=== PATIENT | female | born 1975 | race Caucasian/White ===

== ENCOUNTER 2018-07-13 20:45 | Inpatient (IN) ==
[2018-07-13] MEDS ORDERED: Mag Hydrox/Al Hydrox/Simeth 30 ML UDC PO PRN (21:35)
[2018-07-13] MEDS ORDERED: *HR* LORazepam 1 MG TABLET PO PRN (21:35)
[2018-07-13] MEDS ORDERED: hydrOXYzine pamoate 25 MG CAPSULE PO PRN (21:35)
[2018-07-13] MEDS ORDERED: Haloperidol Lactate 5 MG/ML VIAL IM PRN (21:35)
[2018-07-13] MEDS ORDERED: *HR* LORazepam 2 MG/ML VIAL IM PRN (21:35)
[2018-07-13] MEDS ORDERED: MOM Conc 10 ML UD.LIQ PO PRN (21:35)
[2018-07-14] MEDS: Vitamin B Complex/Vit C/Vit E 1 EACH TABLET PO SCH (08:59)
[2018-07-14] MEDS: Loratadine 10 MG TABLET PO SCH (08:59)
[2018-07-14] MEDS: Folic Acid 1 MG TABLET PO SCH (08:59)
[2018-07-14] MEDS: Nicotine 21 MG PATCH.TD24 TD SCH (09:00)
--- NOTE | 2018-07-14 14:56 | Psychiatry History & Physical ---
Date of Encounter: 07/14/18 Time of Encounter: 14:30 History of Present Illness Medicare Admission Attestation: For traditional Medicare patients the provided hospital inpatient services are reasonable and necessary and in the case of services not specified as inpatient-only under 42 CFR 419.22 (n), that they are appropriately provided as inpatient services in accordance 42 CFR 412.3. For Critical Access Hospital the patient may reasonably be expected to be discharged or transferred to a hospital within 96 hours after admission to the Critical Access Hospital. Admitted From: Emergency Dept Plans for Post Hospital Care: Home History of Present Illness: Pt is a 43 yo, , female, marriedx2 x2, with 4 children (22D,18D, 13D, 11D)who presents for mood and depression to the emergency department. Pt noted she felt safe and comfortable on the unit. Pt was in agreement with treatment plan. Pt noted that she is doing better today. Pt noted she slept 8-10 hours last night. Pt noted her appetite is reduced. Pt rated her depression a 5, on a scale of zero to ten with ten being the worst and zero being none. Pt rate her anxiety a 8, on the same scale. Pt denied any current visual or auditory hallucinations. Pt denied any thoughts to harm herself or anyone else. Pt noted she has her own home in [facility]. Pt noted that her highest level of education is some college nursing degree. 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 Pt noted 2 inpt psychiatric hospitalizations. Pt noted three previous suicide attempts via alcohol and overdose. Pt denies any suicide family hx. PT noted her mother was Bipolar D/O. PT agreed to utilizing only quetiapine and lithium for medication management of Bipolar D/O. Pt was educated on the risks benefits and side-effects of these medications including no medication, pt was in agreement. . No TD noted, AIMS=0 Pt denies any hx of seizures, hep C, HIV or TBIs. Tobacco: 1ppd Alcohol: vodka daily Street: occasional marijuan Caffeine: 2-3 per day Plan 1.Interval hx 2.Continue current medications 3.Review current labs 4.Pt had an opportunity to ask questions and discuss current treatment plan. 5.Supportive therapy was provided 6.Pt encouraged to consider group or individual therapy 7.Pt was in agreement with treatment plan. 8.Pt was educated on the risks benefits and side effects of current medications. 9. start acamprosate for alcohol use D/O. Past Med Surg Social Fam HX - Past Medical History Medical history: asthma, thyroid disease, other - Past Psychiatric History Psychiatric history: Reports: anxiety, depression, prior suicide attempt, previous psychiatric hospitalization Family psychiatric history: Yes Family History of Suicide: None - Past Surgical History Surgical History: cholecystectomy, hysterectomy - Social History Smoking Status: Current every day smoker Smokeless Tobacco Status: No Alcohol use: heavy, recent Drug use: marijuana Medications & Allergies Levothyroxine [Synthroid] 112 mcg PO DAILY 02/12/16 [History] clonazePAM [Klonopin] 1 mg PO TID 02/12/16 [History] Esomeprazole Magnesium [Nexium] 20 mg PO DAILY 04/10/17 [History] Albuterol Sulfate [Albuterol Inhaler] 2 puff IH Q4HR PRN 07/11/18 [History] Loratadine [Claritin] 10 mg PO DAILY 07/11/18 [History] Chlordiazepoxide [Librium] 50 mg PO TID capsule 07/12/18 [Rx] Folic Acid 1 mg PO DAILY tablet 07/12/18 [Rx] Vitamin B Complex/Vit C/Vit E [Stresstab] 1 each PO DAILY tablet 07/12/18 [Rx] Allergy/AdvReac Type Severity Reaction Status Date / Time baclofen Allergy Hives Verified 11/28/17 04:21 nitrofurantoin Allergy Hives Verified 11/28/17 04:21 [From Macrobid] Review of Systems Constitutional: Denies: fever, chills, weakness, weight change Eyes: Denies: eye pain, vision change Ears, Nose, Throat: Denies: ear pain, throat pain, dental pain, hearing loss, congestion Cardiovascular: Denies: chest pain, palpitations, dyspnea on exertion Respiratory: Denies: cough, dyspnea, wheezes Gastrointestinal: Denies: abdominal pain, nausea, vomiting, diarrhea, constipation Genitourinary female: Denies: urgency, dysuria, frequency, abnormal menses, dyspareunia Musculoskeletal: Denies: joint swelling, joint pain Integumentary: Denies: rash, lesions, pruritus Neurological: Denies: headache, weakness, numbness, memory loss Psychiatric: Reports: depression, anxiety, abnormal sleep pattern, suicidal ideation, panic attacks Endocrine: Denies: fatigue, heat or cold intolerance Hematologic/Lymphatic: Denies: easy bruising, lymphadenopathy Allergic/Immunologic: Denies: urticaria, itchy eyes Exam - HEENT Head exam IM: Present: atraumatic Eye exam IM: Present: EOMI, normal appearance, PERRL ENT exam IM: Present: normal exam - Neurological Neurological exam: Present: CN II-XII intact - Respiratory Respiratory exam IM: Present: CTAB - GI/Abdominal GI/Abdominal exam IM: Present: normal bowel sounds, soft. Absent: tenderness - Extremities Extremities exam IM: Present: full ROM - Skin Skin exam IM: Present: dry, warm - Constitutional Vitals: Temp Pulse Resp BP Pulse Ox 98.7 F 82 16 94/61 98 07/14/18 09:00 07/14/18 09:00 07/14/18 09:00 07/14/18 09:00 07/14/18 09:00 General appearance: age & developmentally appropriate, well-groomed, well- nourished - Musculoskeletal Gait: normal Station: relaxed Strength & Tone: normal for patient - Psychiatric Patient Orientation: Yes Person, Yes Time, Yes Place Level of alertness: Alert Behavior: calm, cooperative Psychomotor activity: Normal Eye Contact: Maintains Eye Contact Mood Description: Depressed Affect description: flat, dysphoric Speech Volume: Normal Speech pattern: normal rate, normal rhythm, normal tone, fluent, spontaneous Language & Vocabulary: consistent with education Thought Process: Linear, Goal Oriented Thought Content: No Suicidal ideation, No Homicidal ideation, No Overt delusions Perceptual Disturbances: No Auditory hallucinations, No Visual hallucinations Attention Span Ability: Capable of Focused Attention Memory Description: Grossly Intact Patient Reliability: Reliable Historian Fund of knowledge: Yes abstraction ability, Yes average, Yes aware of current events Intelligence Estimate: Average Judgment: Limited Insight: Partial Assessment and Plan (1) Bipolar 1 disorder Current visit: Yes Status: Acute Plan: Admit inpatient for safety and stabilization, Close observation, Suicide Precautions per unit protocol, Encourage participation in unit milieu, Group Therapy, Monitor sleep, Monitor appetite Risks, benefits, side effects, a lternatives discussed w/pt: Yes Patient agreeable to treatment: Yes Plans for Post Hospital Care: at Home (2) Alcohol use Current visit: No Status: Chronic Plan: Admit inpatient for safety and stabilization, Close observation, Suicide Precautions per unit protocol, Encourage participation in unit milieu, Group Therapy, Monitor sleep, Monitor appetite Risks, benefits, side effects, alternatives discussed w/pt: Yes Patient agreeable to treatment: Yes Plans for Post Hospital Care: at Home (3) Generalized anxiety disorder Current visit: No Status: Acute Plan: Admit inpatient for safety and stabilization, Close observation, Suicide Precautions per unit protocol, Encourage participation in unit milieu, Group Therapy, Monitor sleep, Monitor appetite Risks, benefits, side effects, alternatives discussed w/pt: Yes Patient agreeable to treatment: Yes Plans for Post Hospital Care: at Home
[2018-07-14 15:54] LABS: Basophils # 0.1 K/mcL (0.0-0.2); Basophils % 0.6 %; Eosinophils # 0.3 K/mcL (0.0-0.6); Hematocrit 41.9 % (35.3-44.9); Hemoglobin 13.9 g/dL (11.5-15.4); Immature Granulocytes % 0.4 % (0-4); Lymphocytes % 21.9 %; Mean Corpuscular HGB Conc 33.2 g/dL (31.6-35.5); Mean Corpuscular Hemoglobin 35.1 pg (28.0-33.3); Mean Corpuscular Volume 105.8 fL (83.0-100.0); Mean Platelet Volume 11.1 fL (9.4-12.4); Monocytes % 7.3 %; Neutrophils # 9.4 K/mcL (1.6-8.9); Platelet Count 271 K/mcL (140-400); Red Blood Count 3.96 M/mcL (3.82-4.97); Red Cell Distribution Width 14.5 % (11.5-14.5); Segmented Neutrophils % 67.8 %
[2018-07-14 16:14] LABS: Alanine Aminotransferase 10 Units/L (7-52); Albumin 4.5 g/dL (3.5-5.7); Albumin/Globulin Ratio 1.7 (1.1-2.2); Alkaline Phosphatase 54 Units/L (34-104); Aspartate Amino Transferase 17 Units/L (13-39); BUN/Creatinine Ratio 20 (6-26); Bilirubin,Total 0.3 mg/dL (0.3-1.0); Blood Urea Nitrogen 19 mg/dL (6-20); Calcium 9.8 mg/dL (8.6-10.3); Carbon Dioxide 25 mEq/L (23-29); Chloride 107 mEq/L (98-107); Globulin 2.7 g/dL (2.4-3.5); Glucose 90 mg/dL (70-105); Osmolality,Calculated 288 (280-300); Potassium 4.3 mEq/L (3.5-5.1); Sodium 138 mEq/L (136-145); Total Protein 7.2 g/dL (6.4-8.9); eGFR For Non-African Americans > 60 (> 60)
[2018-07-14] MEDS ORDERED: (Acamprosate Calcium [Acamprosate Calcium] 666 MG) PO SCH (16:30)
[2018-07-14] MEDS ORDERED: NALTREXONE HCL 50 MG TABLET PO SCH (21:00)
[2018-07-14] MEDS: Ibuprofen 400 MG TABLET PO PRN (21:30)
[2018-07-14] MEDS: NALTREXONE HCL 50 MG TABLET PO SCH (21:31)
[2018-07-14] MEDS: Divalproex (24 HR) 250 MG TABLET PO SCH (21:31)
[2018-07-15] MEDS: Nicotine 21 MG PATCH.TD24 TD SCH (09:06)
[2018-07-15] MEDS: Folic Acid 1 MG TABLET PO SCH (09:07)
[2018-07-15] MEDS: Loratadine 10 MG TABLET PO SCH (09:07)
[2018-07-15] MEDS: Vitamin B Complex/Vit C/Vit E 1 EACH TABLET PO SCH (09:07)
[2018-07-15] MEDS: Thiamine (B-1) 100 MG TABLET PO SCH (09:07)
--- NOTE | 2018-07-15 17:23 | Psychiatry Progress Note ---
Date of Encounter: 07/15/18 Time of Encounter: 17:00 Subjective Interval history: ID the patient is a 43-year-old white female. Chief complaint I does have a lot of anxiety History of present illness the patient has bipolar disorder generalized anxiety disorder and now recognizes difficulty with alcohol abuse. She is on Librium and is on a tapering dose but still has significant anxiety and is anxious and apprehensive. The patient has had suicidal ideation with thoughts and says this has got to help my anxiety. The patient has tolerated valproic acid she receives 750 mg last night. She is tolerated naltrexone 25 mg she received at night. The patient has previously failed to tolerate topiramate she is allergic to baclofen she has never been on Campral BuSpar did not help. She now recognizes the need to maintain a clean and sober lifestyle. She is willing to engage in some types of therapy to help with. She recognizes that Librium will need to be slowly tapered. We talked about job and career as well Review of Systems Psychiatric: Reports: depression, anxiety, abnormal sleep pattern, suicidal ideation, panic attacks Results - Vital Signs Vital Signs: Temp Pulse Resp BP Pulse Ox 97.1 F L 102 18 108/77 100 07/15/18 09:00 07/15/18 09:00 07/15/18 09:00 07/15/18 09:00 07/15/18 09:00 Assessment and Plan (1) Major depressive disorder with current active episode Current visit: No Status: Chronic Plan: Continue hospitalization, Close observation, Suicide Precautions per unit protocol, Encourage participation in unit milieu, Monitor appetite, Secure weapons Risks, benefits, side effects, alternatives discussed w/pt: Yes Patient agreeable to treatment: Yes Qualifiers: Major depression recurrence: recurrent Major depression episode severity: severe Psychotic features: without psychotic features Qualified Code(s): F33.2 - Major depressive disorder, recurrent severe without psychotic features (2) Alcohol use Current visit: No Status: Chronic Plan: Monitor sleep, Monitor appetite Risks, benefits, side effects, alternatives discussed w/pt: Yes Patient agreeable to treatment: Yes (3) Suicidal ideation Current visit: No Status: Acute Plan: Continue hospitalization, Close observation, Suicide Precautions per unit protocol, Encourage participation in unit milieu Psychiatry Exam - Constitutional Vitals: Temp Pulse Resp BP Pulse Ox 97.1 F L 102 18 108/77 100 07/15/18 09:00 07/15/18 09:00 07/15/18 09:00 07/15/18 09:00 07/15/18 09:00 General appearance: age & developmentally appropriate, well-groomed, well- nourished - Musculoskeletal Gait: brisk Strength & Tone: normal for patient - Psychiatric Patient Orientation: Yes Person, Yes Time, Yes Place Level of alertness: Alert Behavior: calm, cooperative Psychomotor activity: Increased Eye Contact: Maintains Eye Contact Mood Description: Euthymic/stable, Anxious Affect description: congruent with mood, full range, dysphoric, anxious Speech Volume: Normal Speech pattern: normal rate, normal rhythm, normal tone, fluent, spontaneous Language & Vocabulary: consistent with education Thought Process: Linear, Goal Oriented Thought Content: Yes Suicidal ideation, No Homicidal ideation, No Overt delusions Perceptual Disturbances: No Auditory hallucinations, No Visual hallucinations Attention Span Ability: Capable of Focused Attention Memory Description: Grossly Intact Patient Reliability: Reliable Historian Fund of knowledge: Yes abstraction ability, Yes aware of current events Intelligence Estimate: Above [place] Judgment: Fair Insight: Partial
[2018-07-15] MEDS: NALTREXONE HCL 50 MG TABLET PO SCH (20:23)
[2018-07-15] MEDS: Divalproex (24 HR) 250 MG TABLET PO SCH (20:23)
[2018-07-15] MEDS: Ibuprofen 400 MG TABLET PO PRN (20:24)
[2018-07-16] MEDS: Thiamine (B-1) 100 MG TABLET PO SCH (09:02)
[2018-07-16] MEDS: Folic Acid 1 MG TABLET PO SCH (09:02)
[2018-07-16] MEDS: Loratadine 10 MG TABLET PO SCH (09:03)
[2018-07-16] MEDS: Vitamin B Complex/Vit C/Vit E 1 EACH TABLET PO SCH (09:03)
[2018-07-16] MEDS: Nicotine 21 MG PATCH.TD24 TD SCH (09:03)
--- NOTE | 2018-07-16 15:49 | Psychiatry Progress Note ---
Date of Encounter: 07/16/18 Time of Encounter: 15:30 Subjective Interval history: U the patient is a 43-year-old white female. Chief complaint can I take the Depakote twice a day. History of present illness the patient has been able to tolerate the naltrexone she has taken 25 mg by mouth she was able to tolerate the Depakote she notes some increase in sleep through the patient is worried about the cost of medications. She is concerned about her follow-up. The patient notes that abstinence is difficult. The patient still has anxiety. She was willing to reduce her Librium today. She is making plans for a sober life. . The patient has a history of pancreatitis but this was an alcoholic pancreatitis. The patient has a history of elevated white blood cells that have not been fully explained. Apical tends to reduce white blood cells. The patient had other hematologic abnormalities. The patient will have an amylase and valproic acid level drawn tomorrow with a CBC with differential. Review of Systems Psychiatric: Reports: depression, anxiety, suicidal ideation, panic attacks Results - Vital Signs Vital Signs: Temp Pulse Resp BP Pulse Ox 97.7 F 96 16 105/74 100 07/16/18 09:00 07/16/18 09:00 07/16/18 09:00 07/16/18 09:00 07/16/18 09:00 Assessment and Plan (1) Major depressive disorder with current active episode Current visit: No Status: Chronic Plan: Continue hospitalization, Close observation, Suicide Precautions per unit protocol, Group Therapy, Monitor sleep Risks, benefits, side effects, alternatives discussed w/pt: Yes Patient agreeable to treatment: Yes Qualifiers: Major depression recurrence: recurrent Major depression episode severity: severe Psychotic features: without psychotic features Qualified Code(s): F33.2 - Major depressive disorder, recurrent severe without psychotic features (2) Alcohol use Current visit: No Status: Chronic Plan: Suicide Precautions per unit protocol, Monitor appetite, Secure weapons Risks, benefits, side effects, alternatives discussed w/pt: Yes Patient agreeable to treatment: Yes (3) Suicidal ideation Current visit: No Status: Acute Plan: Continue hospitalization, Close observation, Family/Supportive other meeting Risks, benefits, side effects, alternatives discussed w/pt: Yes Patient agreeable to treatment: Yes Consult Discharge Plan - Plan Referrals: [facility] [Outside] - 08/20/18 10:00 am (The above appointment is with Dr. Rene for outpatient psychiatric assessment and medication management services. Please bring your insurance card (or HCAP award letter) and photo ID. If you are unable to keep this appointment, 24 hour business notice of cancellation is expected. If you miss your new patient appointment with any provider without providing appropriate notice, you cannot be re-scheduled for that service. The above appointment(s) reflects first availability. You may contact the office regularly to check for cancellations that may allow you to be seen sooner. The [facility] is the 1st building behind [facility] in [place], [place]. Please do not use GPS or mapping apps to locate the office, as they will take you to the wrong location. ) [facility] [Outside] (The above appointment is with . Please complete and bring the [facility] intake packet you were provided at the hospital to this appointment. When you come to your first appointment, you will be meeting with business office staff, meeting with a counselor, and developing a treatment plan. You will receive follow- up appointments for on-going services, which could include community support, mental health and substance abuse counseling, groups/partial hospitalization programming and medication assisted treatment. You will also need to bring the following to your first appointment as well: 1) proof of household income (two consecutive pay stubs, social security award letter, bank statement, statement letter from [facility], child support statement, IRS 1040 or W2 form, or a statement from the person who financially supports you stating they help provide for your basic needs), 2) proof of residency (drivers license, a piece of mail showing your address, a statement from person you live with verifying you live at their address), 3) photo ID, 4) your insurance card (if you have commercial insurance you must call to obtain a prior authorization number before you arrive to your first appointment) and 5) if you do not have insurance but have applied for Medicaid, please bring verification you have applied. The above appointment(s) reflects first availability. You may contact the office regularly to check for cancellations that may allow you to be seen sooner.) Psychiatry Exam - Constitutional Vitals: Temp Pulse Resp BP Pulse Ox 97.7 F 96 16 105/74 100 07/16/18 09:00 07/16/18 09:00 07/16/18 09:00 07/16/18 09:00 07/16/18 09:00 General appearance: age & developmentally appropriate, well-groomed, well- nourished - Musculoskeletal Gait: normal Station: relaxed Strength & Tone: normal for patient - Psychiatric Patient Orientation: Yes Person, Yes Time, Yes Place Level of alertness: Alert Behavior: calm, cooperative Psychomotor activity: Normal Eye Contact: Maintains Eye Contact Mood Description: Anxious Affect description: congruent with mood, full range Speech Volume: Normal Speech pattern: normal rate, normal rhythm, normal tone, fluent, spontaneous Language & Vocabulary: consistent with education Thought Process: Linear, Goal Oriented Thought Content: Yes Suicidal ideation, No Homicidal ideation, No Overt delusions Perceptual Disturbances: No Auditory hallucinations, No Visual hallucinations Attention Span Ability: Capable of Focused Attention Memory Description: Grossly Intact Patient Reliability: Reliable Historian Fund of knowledge: Yes abstraction ability, Yes aware of current events Intelligence Estimate: Above [place] Judgment: Fair Insight: Partial
[2018-07-16] MEDS ORDERED: Divalproex (24 HR) 500 MG TABLET PO STA (15:57)
[2018-07-16] MEDS: Ibuprofen 400 MG TABLET PO PRN (16:03)
[2018-07-16] MEDS ORDERED: Divalproex (24 HR) 500 MG TABLET PO SCH ×2 (21:00)
[2018-07-16] MEDS: NALTREXONE HCL 50 MG TABLET PO SCH (21:58)
[2018-07-17] MEDS: Ibuprofen 400 MG TABLET PO PRN ×2 (06:38→21:06)
[2018-07-17] MEDS: Nicotine 21 MG PATCH.TD24 TD SCH (09:08)
[2018-07-17] MEDS: Divalproex (24 HR) 250 MG TABLET PO SCH ×2 (09:09→21:06)
[2018-07-17] MEDS: Vitamin B Complex/Vit C/Vit E 1 EACH TABLET PO SCH (09:10)
[2018-07-17] MEDS: Thiamine (B-1) 100 MG TABLET PO SCH (09:10)
[2018-07-17] MEDS: Loratadine 10 MG TABLET PO SCH (09:10)
[2018-07-17] MEDS: Folic Acid 1 MG TABLET PO SCH (09:10)
[2018-07-17 09:46] LABS: Basophils # 0.1 K/mcL (0.0-0.2); Basophils % 0.7 %; Eosinophils # 0.3 K/mcL (0.0-0.6); Eosinophils % 2.7 %; Hematocrit 41.9 % (35.3-44.9); Hemoglobin 13.8 g/dL (11.5-15.4); Immature Granulocytes % 0.7 % (0-4); Lymphocytes # 1.9 K/mcL (0.6-4.6); Lymphocytes % 19.3 %; Mean Corpuscular HGB Conc 32.9 g/dL (31.6-35.5); Mean Corpuscular Volume 106.3 fL (83.0-100.0); Mean Platelet Volume 10.7 fL (9.4-12.4); Monocytes # 0.7 K/mcL (0.0-1.3); Platelet Count 264 K/mcL (140-400); Red Blood Count 3.94 M/mcL (3.82-4.97); Red Cell Distribution Width 14.4 % (11.5-14.5); Segmented Neutrophils % 69.6 %
--- NOTE | 2018-07-17 11:26 | Psychiatry Progress Note ---
Date of Encounter: 07/17/18 Time of Encounter: 11:00 Subjective Interval history: ID the patient is a 43-year-old white female. Chief complaint I just feel so tired. History of present illness the patient has tolerated the medication regimen but among the treatments that she is receiving his Seroquel 50 mg daily at bedtime last night she got it at 10 PM and did not fall asleep until midnight. The patient tolerated naltrexone 25 mg and is ready to go to 50 mg every afternoon. The patient describes some morning tiredness and fogginess and notes that yesterday he did not let up until about 2:00 in the afternoon. The patient has not used much hydroxyzine as it does not help she has tolerated Depakote 500 mg twice a day. A valproic acid panel is pending today. The patient has 7 days of sobriety and is working on her plans for follow-up. Currently these involve [facility] but she does not want to go to [facility]. She has plans to maintain her sobriety and to return to work in her work schedule she would awaken at 3:30 in the morning and go to work and do an early shift. The patient has no alcohol in her home she has no drugs in her home she has no incendiary devices ropes chains or firearms read this is been verified. The patient was counseled on the importance of safety in the home area as suicidal ideation could occur with major depression or relapse into alcohol abuse. The patient has significant anxiety we reviewed some labs. The patient is being treated with Synthroid for thyroid disease but notes that the TSH is unreliable in her case she notes that she has some features of hypothyroidism such as cold intolerance but will discuss this with her family doctor. Patient was advised on options for maintaining sobriety such as AA obtaining a sponsor or being involved in other programs. Review of Systems Psychiatric: Reports: depression, anxiety, suicidal ideation, panic attacks Results - Vital Signs Vital Signs: Temp Pulse Resp BP Pulse Ox 97.8 F 103 18 93/59 100 07/17/18 09:00 07/17/18 09:00 07/17/18 09:00 07/17/18 09:00 07/17/18 09:00 - Labs Labs: Laboratory Results - last 24 hr 07/17/18 09:36 WBC 10.1 RBC 3.94 Hgb 13.8 Hct 41.9 MCV 106.3 H MCH 35.0 H MCHC 32.9 RDW 14.4 Plt Count 264 MPV 10.7 Immature Gran % 0.7 Seg Neutrophils % 69.6 Lymphocytes % 19.3 Monocytes % 7.0 Eosinophils % 2.7 Basophils % 0.7 Neutrophils # 7.0 Lymphocytes # 1.9 Monocytes # 0.7 Eosinophils # 0.3 Basophils # 0.1 Assessment and Plan (1) Major depressive disorder with current active episode Current visit: No Status: Chronic Plan: Continue hospitalization, Close observation, Suicide Precautions per unit protocol, Encourage participation in unit milieu, Group Therapy, Monitor sleep, Monitor appetite, Secure weapons Risks, benefits, side effects, alternatives discussed w/pt: Yes Patient agreeable to treatment: Yes Qualifiers: Major depression recurrence: recurrent Major depression episode severity: severe Psychotic features: without psychotic features Qualified Code(s): F33.2 - Major depressive disorder, recurrent severe without psychotic features (2) Alcohol use Current visit: No Status: Chronic Plan: Continue hospitalization, Close observation, Suicide Precautions per unit protocol, Encourage participation in unit milieu, Group Therapy, Monitor sleep, Monitor appetite, Secure weapons, Other Risks, benefits, side effects, alternatives discussed w/pt: Yes Patient agreeable to treatment: Yes (3) Suicidal ideation Current visit: No Status: Acute Plan: Suicide Precautions per unit protocol, Secure weapons Risks, benefits, side effects, alternatives discussed w/pt: Yes Patient agreeable to treatment: Yes Consult Discharge Plan - Plan Referrals: [facility] [Outside] - 08/20/18 10:00 am (The above appointment is with Dr. Rene for outpatient psychiatric assessment and medication management services. Please bring your insurance card (or [facility] award letter) and photo ID. If you are unable to keep this appointment, 24 hour business notice of cancellation is expected. If you miss your new patient appointment with any provider without providing appropriate notice, you cannot be re-scheduled for that service. The above appointment(s) reflects first availability. You may contact the office regularly to check for cancellations that may allow you to be seen sooner. The [facility] is the 1st building behind [facility] in [place], [place]. Please do not use GPS or mapping apps to locate the office, as they will take you to the wrong location. ) [facility] [Outside] (The above appointment is with . Please complete and bring the [facility] intake packet you were provided at the hospital to this appointment. When you come to your first appointment, you will be meeting with business office staff, meeting with a counselor, and developing a treatment plan. You will receive follow- up appointments for on-going services, which could include community support, mental health and substance abuse counseling, groups/partial hospitalization programming and medication assisted treatment. You will also need to bring the following to your first appointment as well: 1) proof of household income (two consecutive pay stubs, social security award letter, bank statement, statement letter from [facility], child support statement, IRS 1040 or W2 form, or a statement from the person who financially supports you stating they help provide for your basic needs), 2) proof of residency (drivers license, a piece of mail showing your address, a statement from person you live with verifying you live at their address), 3) photo ID, 4) your insurance card (if you have commercial insurance you must call to obtain a prior authorization number before you arrive to your first appointment) and 5) if you do not have insurance but have applied for Medicaid, please bring verification you have applied. The above appointment(s) reflects first availability. You may contact the office regularly to check for cancellations that may allow you to be seen sooner.) Psychiatry Exam - Constitutional Vitals: Temp Pulse Resp BP Pulse Ox 97.8 F 103 18 93/59 100 07/17/18 09:00 07/17/18 09:00 07/17/18 09:00 07/17/18 09:00 07/17/18 09:00 General appearance: age & developmentally appropriate, well-groomed, thin - Musculoskeletal Gait: normal Station: relaxed Strength & Tone: normal for patient - Psychiatric Patient Orientation: Yes Person, Yes Time, Yes Place Level of alertness: Alert Behavior: calm, cooperative Psychomotor activity: Slowed Eye Contact: Maintains Eye Contact Mood Description: Depressed, Anxious Affect description: congruent with mood, anxious Speech Volume: Normal, Whispering Speech pattern: normal rate, normal rhythm, normal tone, fluent, spontaneous Language & Vocabulary: consistent with education Thought Process: Linear, Goal Oriented Thought Content: Yes Suicidal ideation, No Homicidal ideation, No Overt delusions Perceptual Disturbances: No Auditory hallucinations, No Visual hallucinations Attention Span Ability: Capable of Focused Attention Memory Description: Grossly Intact Patient Reliability: Reliable Historian Fund of knowledge: Yes abstraction ability, Yes aware of current events Intelligence Estimate: Above [place] Judgment: Fair Insight: Partial
[2018-07-17 12:02] LABS: Amylase 69 Units/L (29-103)
[2018-07-17 12:43] LABS: Valproate 58 mcg/mL (50-100)
[2018-07-17] MEDS ORDERED: NALTREXONE HCL 50 MG TABLET PO SCH (21:00)
[2018-07-18] MEDS: Thiamine (B-1) 100 MG TABLET PO SCH (08:56)
[2018-07-18] MEDS: Divalproex (24 HR) 250 MG TABLET PO SCH (08:57)
[2018-07-18] MEDS: Loratadine 10 MG TABLET PO SCH (08:57)
[2018-07-18] MEDS: Vitamin B Complex/Vit C/Vit E 1 EACH TABLET PO SCH (08:57)
[2018-07-18] MEDS: Folic Acid 1 MG TABLET PO SCH (08:57)
[2018-07-18] MEDS: Nicotine 21 MG PATCH.TD24 TD SCH (08:58)
[2018-07-18 09:45] VITALS: BP 94/64
--- NOTE | 2018-07-18 12:45 | Discharge Summary ---
Date of Encounter: 07/18/18 Time of Encounter: 12:30 Diagnosis - Discharge Diagnosis (1) Major depressive disorder with current active episode Priority: Primary Status: Chronic Qualifiers: Major depression recurrence: recurrent Major depression episode severity: severe Psychotic features: without psychotic features Qualified Code(s): F33.2 - Major depressive disorder, recurrent severe without psychotic features (2) Alcohol use Priority: Secondary Status: Chronic (3) Suicidal ideation Status: Resolved Medications - Discharge Medications Prescriptions: Divalproex (24 HR) [Depakote ER (24 HR)] 500 mg PO BID 30 Days #60 tab.er.24h Folic Acid 1 mg PO DAILY 30 Days #30 tablet Levothyroxine [Synthroid] 112 mcg PO DAILY@0630 30 Days #30 tablet Naltrexone HCl 50 mg PO HS 30 Days #30 tablet Omeprazole [PriLOSEC] 40 mg PO DAILY@0900 30 Days #30 capsule. Quetiapine Fumarate [Seroquel] 50 mg PO HS PRN 30 Days #30 tablet PRN Reason: Insomnia Thiamine (B-1) [Vitamin B-1] 100 mg PO DAILY 30 Days #30 tablet Vitamin B Complex/Vit C/Vit E [Stresstab] 1 each PO DAILY 30 Days #30 tablet Albuterol Sulfate [Albuterol Inhaler] 2 puff IH Q4HR PRN 07/11/18 [History] Dicyclomine [Bentyl] 20 mg PO Q6H PRN capsule 07/18/18 [Rx] Divalproex (24 HR) [Depakote ER (24 HR)] 500 mg PO BID 30 Days #60 tab.er.24h 07/18/18 [Rx] Esomeprazole Magnesium [Nexium] 20 mg PO DAILY 30 Days #30 tab 07/18/18 [Rx] Folic Acid 1 mg PO DAILY 30 Days #30 tablet 07/18/18 [Rx] Levothyroxine [Synthroid] 112 mcg PO DAILY@0630 30 Days #30 tablet 07/18/18 [Rx] Loratadine [Claritin] 10 mg PO DAILY 30 Days #30 tab 07/18/18 [Rx] Naltrexone HCl 50 mg PO HS 30 Days #30 tablet 07/18/18 [Rx] Omeprazole [PriLOSEC] 40 mg PO DAILY@0900 30 Days #30 capsule. 07/18/18 [Rx] Quetiapine Fumarate [Seroquel] 50 mg PO HS PRN 30 Days #30 tablet 07/18/18 [Rx] Thiamine (B-1) [Vitamin B-1] 100 mg PO DAILY 30 Days #30 tablet 07/18/18 [Rx] Vitamin B Complex/Vit C/Vit E [Stresstab] 1 each PO DAILY 30 Days #30 tablet 07/18/18 [Rx] Allergy/AdvReac Type Severity Reaction Status Date / Time baclofen Allergy Hives Verified 11/28/17 04:21 nitrofurantoin Allergy Hives Verified 11/28/17 04:21 [From Macrobid] Results Procedures and tests throughout hospitalization: Completed Lab Orders Category Date Time Status Amylase Routine Lab 07/17/18 09:36 Completed CBC [Complete Blood Count] [HEME] Routine Lab 07/14/18 15:30 Completed CBC [Complete Blood Count] [HEME] Routine Lab 07/17/18 09:36 Completed Comprehensive Metabolic Panel Routine Lab 07/14/18 15:30 Completed Valproate Routine Lab 07/17/18 09:36 Completed Provider Date of admission: 07/13/18 20:45 Primary care physician: PCP NONE Discharging clinician: Hansel Kam Psychiatry Exam - Constitutional Vitals: Temp Pulse Resp BP Pulse Ox 98.2 F 108 16 94/64 100 07/18/18 09:00 07/18/18 09:00 07/18/18 09:00 07/18/18 09:00 07/18/18 09:00 General appearance: age & developmentally appropriate, well-groomed, well- nourished - Musculoskeletal Gait: normal Station: relaxed Strength & Tone: normal for patient - Psychiatric Patient Orientation: Yes Person, Yes Time, Yes Place Level of alertness: Alert Behavior: calm, cooperative Psychomotor activity: Normal Eye Contact: Maintains Eye Contact Mood Description: Euthymic/stable Affect description: congruent with mood, full range Speech Volume: Normal Speech pattern: normal rate, normal rhythm, normal tone, fluent, spontaneous Language & Vocabulary: consistent with education Thought Process: Linear, Goal Oriented Thought Content: No Suicidal ideation, No Homicidal ideation, No Overt delusions Perceptual Disturbances: No Auditory hallucinations, No Visual hallucinations Attention Span Ability: Capable of Focused Attention Memory Description: Grossly Intact Patient Reliability: Reliable Historian Fund of knowledge: Yes abstraction ability, Yes aware of current events Intelligence Estimate: Above [place] Judgment: Good Insight: Full Hospital Course Hospital course: Ms. Caicedo is a 43 year old female Time spent discussing smoking cessation with patient: 3 to 10 minutes Does patient wish to continue nicotine replacement upon disc: Yes - Time Spent with Patient Total time spent providing and/or coordinating discharge services: Greater than 30 minutes Assessment and Plan - Patient/Caregiver Discharge Instructions Activity: resume usual activities as tolerated Diet: regular diet - Follow up Plan Follow up with: [facility] [Outside] - 08/20/18 10:00 am (The above appointment is with Dr. Rene for outpatient psychiatric assessment and medication management services. Please bring your insurance card (or [facility] award letter) and photo ID. If you are unable to keep this appointment, 24 hour business notice of cancellation is expected. If you miss your new patient appointment with any provider without providing appropriate notice, you cannot be re-scheduled for that service. The above appointment(s) reflects first availability. You may contact the office regularly to check for cancellations that may allow you to be seen sooner. The [facility] is the 1st building behind [facility] in [place], [place]. Please do not use GPS or mapping apps to locate the office, as they will take you to the wrong location. ) [facility] [Outside] - 08/05/18 2:00 pm (The above appointment is with Chaya Powers. In order for this appointment to be held for you, you must call the care team coordinator scheduler at [phone] and confirm that you plan to attend this appointment. If the care team coordinator scheduler is not available, you may leave a message on her voicemail to confirm. If you do not confirm by the date and time noted, the appointment will be cancelled. Please complete and bring the [facility] intake packet you were provided at the hospital to this appointment. When you come to your first appointment, you will be meeting with business office staff, meeting with a counselor, and developing a treatment plan. You will receive follow- up appointments for on-going services, which could include community support, mental health and substance abuse counseling, groups/partial hospitalization programming and medication assisted treatment. You will also need to bring the following to your first appointment as well: 1) proof of household income (two consecutive pay stubs, social security award letter, bank statement, statement letter from [facility], child support statement, IRS 1040 or W2 form, or a statement from the person who financially supports you stating they help provide for your basic needs), 2) proof of residency (drivers license, a piece of mail showing your address, a statement from person you live with verifying you live at their address), 3) photo ID, 4) your insurance card (if you have commercial insurance you must call to obtain a prior authorization number before you arrive to your first appointment) and 5) if you do not have insurance but have applied for Medicaid, please bring verification you have applied. The above appointment(s) reflects first availability. You may contact the office regularly to check for cancellations that may allow you to be seen sooner. You may walk into the clinic 24 hours a day, 7 days a week to be seen on crisis.) Functional capacity at discharge: independent ambulation Overall status at discharge: Stable Disposition: Home, Self-Care Quality - Multiple Antipsychotics Patient discharged on 2 or more antipsychotic medications: No Procedures - Procedures Procedures: Medication Management, Crisis Stabilization, Supportive Therapy, Group Therapy, Psychoeducational Therapy
== END 2018-07-18 14:55 | disposition home or self-care (01) | DRG 885 ==
LOC: SUATTDRO 20:45 → 1ANU 20:45
PROVIDERS: ADMIT Student in an Organized Health Care Education/Training Program; ATTEND Psychiatry & Neurology Forensic Psychiatry

== ENCOUNTER 2019-06-26 11:36 | Observation (INO) ==
[2019-06-26] MEDS ORDERED: *HR* LORazepam 2 MG/ML VIAL IVP PRN ×3 (11:51)
[2019-06-26] MEDS: Thiamine (B-1) 100 MG TABLET PO SCH (12:28)
[2019-06-26] MEDS: Nicotine 21 MG PATCH.TD24 TD SCH (12:28)
[2019-06-26] MEDS: Vitamin B Complex/Vit C/Vit E 1 EACH TABLET PO SCH (12:57)
[2019-06-26] MEDS: Folic Acid 1 MG TABLET PO SCH (12:57)
[2019-06-26] MEDS ORDERED: Ondansetron 4 MG/2 ML VIAL IVP PRN (13:20)
[2019-06-26] MEDS ORDERED: Naloxone 0.4 MG/ML INJ IVP PRN (13:20)
[2019-06-26] MEDS: Gabapentin 300 MG CAPSULE PO SCH ×2 (15:46→20:03)
[2019-06-26] MEDS: tiZANidine 4 MG TABLET PO SCH ×2 (15:46→20:03)
[2019-06-26] MEDS: Loratadine/Pseudophed (12 HR) 1 EACH TABLET PO SCH (21:33)
[2019-06-27 06:04] LABS: BUN/Creatinine Ratio 17 (6-26); Blood Urea Nitrogen 14 mg/dL (6-20); Calcium 9.7 mg/dL (8.6-10.3); Carbon Dioxide 28 mEq/L (23-29); Chloride 104 mEq/L (98-107); Glucose 94 mg/dL (70-105); Magnesium 2.1 mg/dL (1.6-2.6); Osmolality,Calculated 294 (280-300); Phosphorous 4.1 mg/dL (2.7-4.5); Potassium 3.8 mEq/L (3.5-5.1); Sodium 142 mEq/L (136-145); eGFR For African Americans > 60 (> 60); eGFR For Non-African Americans > 60 (> 60)
[2019-06-27 07:31] LABS: Basophils # 0.1 K/mcL (0.0-0.2); Basophils % 0.5 %; Eosinophils # 0.3 K/mcL (0.0-0.6); Eosinophils % 2.3 %; Hematocrit 40.2 % (35.3-44.9); Hemoglobin 13.7 g/dL (11.5-15.4); Immature Granulocytes % 0.4 % (0-4); Lymphocytes # 3.4 K/mcL (0.6-4.6); Lymphocytes % 25.8 %; Mean Corpuscular HGB Conc 34.1 g/dL (31.6-35.5); Mean Corpuscular Hemoglobin 35.6 pg (28.0-33.3); Mean Corpuscular Volume 104.4 fL (83.0-100.0); Mean Platelet Volume 10.5 fL (9.4-12.4); Monocytes # 0.7 K/mcL (0.0-1.3); Monocytes % 5.6 %; Neutrophils # 8.7 K/mcL (1.6-8.9); Platelet Count 265 K/mcL (140-400); Red Blood Count 3.85 M/mcL (3.82-4.97); Red Cell Distribution Width 13.4 % (11.5-14.5); Segmented Neutrophils % 65.4 %; White Blood Count 13.3 K/mcL (4.3-11.1)
[2019-06-27 08:21] VITALS: BP 105/70
[2019-06-27] MEDS ORDERED: Loratadine/Pseudophed (12 HR) 1 EACH TABLET PO SCH (09:00)
[2019-06-27] MEDS: Gabapentin 300 MG CAPSULE PO SCH ×2 (09:06→14:12)
[2019-06-27] MEDS: Folic Acid 1 MG TABLET PO SCH (09:06)
[2019-06-27] MEDS: Nicotine 21 MG PATCH.TD24 TD SCH (09:06)
[2019-06-27] MEDS: tiZANidine 4 MG TABLET PO SCH ×2 (09:07→14:12)
[2019-06-27] MEDS: Vitamin B Complex/Vit C/Vit E 1 EACH TABLET PO SCH (09:07)
[2019-06-27] MEDS: Thiamine (B-1) 100 MG TABLET PO SCH (09:07)
[2019-06-27] MEDS: Loratadine/Pseudophed (12 HR) 1 EACH TABLET PO SCH (09:07)
[2019-06-27] MEDS ORDERED: Acetaminophen 325 MG TABLET PO PRN (09:12)
== END 2019-06-27 14:26 ==
LOC: 3BNU 11:36 → EMEROOARM 11:36 → 3BNU 13:35
PROVIDERS: ADMIT Internal Medicine; ATTEND Student in an Organized Health Care Education/Training Program

== ENCOUNTER 2019-06-27 14:21 | Inpatient (IN) ==
[2019-06-27] MEDS ORDERED: tiZANidine 4 MG TABLET PO PRN (14:48)
[2019-06-27] MEDS ORDERED: Mag Hydrox/Al Hydrox/Simeth 30 ML UDC PO PRN (14:50)
[2019-06-27] MEDS ORDERED: traZODone 50 MG TABLET PO PRN (14:50)
[2019-06-27] MEDS ORDERED: hydrOXYzine pamoate 25 MG CAPSULE PO PRN (14:50)
[2019-06-27] MEDS ORDERED: MOM Conc 10 ML UD.LIQ PO PRN (14:50)
[2019-06-27] MEDS ORDERED: Haloperidol Lactate 5 MG/ML VIAL IM PRN (14:50)
[2019-06-27] MEDS ORDERED: Ibuprofen 400 MG TABLET PO PRN (14:50)
[2019-06-27] MEDS ORDERED: *HR* LORazepam 1 MG TABLET PO PRN (14:50)
[2019-06-27] MEDS ORDERED: *HR* LORazepam 2 MG/ML VIAL IM PRN (14:50)
[2019-06-27] MEDS: Gabapentin 300 MG CAPSULE PO SCH ×2 (15:56→20:58)
[2019-06-27] MEDS: clonazePAM 1 MG TABLET PO SCH ×2 (15:56→20:58)
[2019-06-27 20:56] VITALS: BP 114/84
[2019-06-27] MEDS ORDERED: ARIPiprazole 5 MG TABLET PO SCH (21:00)
[2019-06-27] MEDS ORDERED: Loratadine/Pseudophed (12 HR) 1 EACH TABLET PO SCH (21:00)
[2019-06-28] MEDS ORDERED: Nicotine 21 MG PATCH.TD24 TD SCH (09:00)
== END 2019-06-28 10:50 | disposition home or self-care (01) | DRG 881 ==
LOC: 1ANU 14:21
PROVIDERS: ADMIT Psychiatry & Neurology Psychiatry; ATTEND Psychiatry & Neurology Psychiatry

== ENCOUNTER 2019-08-27 10:51 | Observation (INO) ==
[2019-08-27 11:30] LABS: Basophils # 0.1 K/mcL (0.0-0.2); Basophils % 0.7 %; Eosinophils # 0.2 K/mcL (0.0-0.6); Eosinophils % 1.7 %; Hematocrit 39.9 % (35.3-44.9); Hemoglobin 13.2 g/dL (11.5-15.4); Immature Granulocytes % 0.5 % (0-4); Lymphocytes # 2.5 K/mcL (0.6-4.6); Mean Corpuscular HGB Conc 33.1 g/dL (31.6-35.5); Mean Corpuscular Hemoglobin 35.5 pg (28.0-33.3); Mean Corpuscular Volume 107.3 fL (83.0-100.0); Monocytes # 0.5 K/mcL (0.0-1.3); Monocytes % 4.9 %; Neutrophils # 7.2 K/mcL (1.6-8.9); Platelet Count 286 K/mcL (140-400); Red Blood Count 3.72 M/mcL (3.82-4.97); Red Cell Distribution Width 13.2 % (11.5-14.5); Segmented Neutrophils % 68.2 %; White Blood Count 10.6 K/mcL (4.3-11.1)
[2019-08-27 11:55] LABS: Acetaminophen < 10 mcg/mL (10-20); Alanine Aminotransferase 19 Units/L (7-52); Albumin 3.8 g/dL (3.5-5.7); Albumin/Globulin Ratio 1.4 (1.1-2.2); Alkaline Phosphatase 57 Units/L (34-104); Aspartate Amino Transferase 26 Units/L (13-39); BUN/Creatinine Ratio 8 (6-26); Bilirubin,Direct 0.1 mg/dL (0.0-0.2); Bilirubin,Indirect 0.2 mg/dL (0.0-1.0); Bilirubin,Total 0.3 mg/dL (0.3-1.0); Blood Urea Nitrogen 5 mg/dL (6-20); Calcium 8.7 mg/dL (8.6-10.3); Carbon Dioxide 24 mEq/L (23-29); Chloride 107 mEq/L (98-107); Chol/HDL Ratio 2.8 (0-4.9); Cholesterol 158 mg/dL (< 200); Ethanol 130 mg/dL (Less than 10); Globulin 2.8 g/dL (2.4-3.5); Glucose 84 mg/dL (70-105); HDL Cholesterol 57 mg/dL (40-59); LDL Cholesterol,Calculated 83 mg/dL (0-99); Osmolality,Calculated 294 (280-300); Potassium 3.5 mEq/L (3.5-5.1); Salicylate < 2.5 mg/dL (15.0-30.0); Sodium 144 mEq/L (136-145); Total Protein 6.6 g/dL (6.4-8.9); Triglycerides 92 mg/dL (< 150); eGFR For African Americans > 60 (> 60); eGFR For Non-African Americans > 60 (> 60)
[2019-08-27 12:06] LABS: Thyroid Stimulating Hormone 0.033 mcIU/mL (0.340-5.600)
[2019-08-27 16:02] LABS: Bilirubin,Urine Negative (Negative); Blood,Urine Negative (Negative); Clarity,Urine Clear (Clear); Color,Urine Yellow (Yellow); Glucose,Urine (UA) Normal (Normal); Ketones,Urine Negative (Negative); Leukocyte Esterase,Urine Negative (Negative); Nitrite,Urine Negative (Negative); Protein,Urine Negative (Neg-Trace); Urobilinogen,Urine Normal (Normal)
[2019-08-27 16:04] LABS: Amphetamine Screen,Urine Negative ng/mL (Cutoff=1000); Barbiturate Screen,Urine Negative ng/mL (Cutoff=200); Benzodiazepines Screen,Urine Positive ng/mL (Cutoff=200); Cannabinoid Screen,Urine Positive ng/mL (Cutoff = 50); Cocaine Screen,Urine Negative ng/mL (Cutoff= 300); Opiate Screen,Urine Positive ng/mL (Cutoff=300); Phencyclidine Screen,Urine Negative ng/mL (Cutoff=25)
[2019-08-27] MEDS ORDERED: Ondansetron 4 MG/2 ML VIAL IVP PRN (19:57)
[2019-08-27] MEDS ORDERED: *HR* LORazepam 2 MG/ML VIAL IVP PRN ×3 (19:57)
[2019-08-27] MEDS ORDERED: Naloxone 0.4 MG/ML INJ IVP PRN (19:57)
[2019-08-27] MEDS: 0.9 % Sodium Chloride 1,000 ML IVC SCH (20:50)
[2019-08-27] MEDS: Cyanocobalamin (B-12) 1,000 MCG TABLET PO SCH (23:01)
[2019-08-27] MEDS: *HR* Heparin 5,000 UNIT/ML VIAL SQ SCH (23:01)
[2019-08-28] MEDS: 0.9 % Sodium Chloride 1,000 ML IVC SCH (05:53)
[2019-08-28] MEDS: *HR* Heparin 5,000 UNIT/ML VIAL SQ SCH (05:56)
[2019-08-28 06:49] LABS: Hematocrit 39.9 % (35.3-44.9); Hemoglobin 13.4 g/dL (11.5-15.4); Mean Corpuscular HGB Conc 33.6 g/dL (31.6-35.5); Mean Corpuscular Hemoglobin 35.2 pg (28.0-33.3); Mean Corpuscular Volume 104.7 fL (83.0-100.0); Mean Platelet Volume 11.4 fL (9.4-12.4); Platelet Count 278 K/mcL (140-400); Red Blood Count 3.81 M/mcL (3.82-4.97); Red Cell Distribution Width 13.1 % (11.5-14.5); White Blood Count 8.7 K/mcL (4.3-11.1)
[2019-08-28 07:03] LABS: BUN/Creatinine Ratio 16 (6-26); Blood Urea Nitrogen 10 mg/dL (6-20); Calcium 8.3 mg/dL (8.6-10.3); Carbon Dioxide 26 mEq/L (23-29); Chloride 105 mEq/L (98-107); Glucose 81 mg/dL (70-105); Magnesium 1.9 mg/dL (1.6-2.6); Osmolality,Calculated 290 (280-300); Phosphorous 2.9 mg/dL (2.7-4.5); Potassium 3.6 mEq/L (3.5-5.1); Sodium 141 mEq/L (136-145); eGFR For African Americans > 60 (> 60); eGFR For Non-African Americans > 60 (> 60)
[2019-08-28] MEDS: Cyanocobalamin (B-12) 1,000 MCG TABLET PO SCH (08:50)
[2019-08-28 09:03] LABS: Estimated Average Glucose 108 mg/dl
[2019-08-28 10:23] VITALS: BP 100/64
[2019-08-28] MEDS ORDERED: Thiamine (B-1) 100 MG, Folic Acid 1 MG, MVI, adult with vitamin K 10 ML in 0.9 % Sodi... IVPB SCH (18:00)
== END 2019-08-28 12:42 | disposition home or self-care (01) ==
LOC: 2ANU 10:51 → EMEROOARM 10:51 → SUATTDRO 20:09 → 2ANU 20:51
PROVIDERS: ADMIT Internal Medicine; ATTEND Internal Medicine

== ENCOUNTER 2019-09-10 13:11 | Inpatient (IN) ==
[2019-09-10] MEDS ORDERED: Ziprasidone 10 MG in Water for inj. (sterile) 0.5 ML IM STA (13:30)
[2019-09-10 14:06] LABS: Basophils # 0.1 K/mcL (0.0-0.2); Eosinophils # 0.2 K/mcL (0.0-0.6); Eosinophils % 1.6 %; Hematocrit 42.2 % (35.3-44.9); Hemoglobin 14.4 g/dL (11.5-15.4); Immature Granulocytes % 0.5 % (0-4); Lymphocytes # 3.8 K/mcL (0.6-4.6); Lymphocytes % 33.3 %; Mean Corpuscular HGB Conc 34.1 g/dL (31.6-35.5); Mean Corpuscular Hemoglobin 34.7 pg (28.0-33.3); Mean Corpuscular Volume 101.7 fL (83.0-100.0); Mean Platelet Volume 10.6 fL (9.4-12.4); Monocytes # 0.8 K/mcL (0.0-1.3); Monocytes % 6.7 %; Neutrophils # 6.5 K/mcL (1.6-8.9); Platelet Count 341 K/mcL (140-400); Red Blood Count 4.15 M/mcL (3.82-4.97); Red Cell Distribution Width 13.2 % (11.5-14.5); Segmented Neutrophils % 56.9 %; White Blood Count 11.4 K/mcL (4.3-11.1)
[2019-09-10 14:17] LABS: Bilirubin,Urine Negative (Negative); Blood,Urine Negative (Negative); Clarity,Urine Clear (Clear); Color,Urine Yellow (Yellow); Glucose,Urine (UA) Normal (Normal); Ketones,Urine Negative (Negative); Leukocyte Esterase,Urine Negative (Negative); Nitrite,Urine Negative (Negative); PH,Urine 6.5 pH Units (5.0-8.0); Protein,Urine Negative (Neg-Trace); Specific Gravity,Urine 1.008 (1.010-1.025); Urobilinogen,Urine Normal (Normal)
[2019-09-10 14:40] LABS: Amphetamine Screen,Urine Negative ng/mL (Cutoff=1000); Barbiturate Screen,Urine Negative ng/mL (Cutoff=200); Benzodiazepines Screen,Urine Negative ng/mL (Cutoff=200); Cannabinoid Screen,Urine Positive ng/mL (Cutoff = 50); Cocaine Screen,Urine Negative ng/mL (Cutoff= 300); Opiate Screen,Urine Negative ng/mL (Cutoff=300); Phencyclidine Screen,Urine Negative ng/mL (Cutoff=25)
[2019-09-10 14:46] LABS: Acetaminophen < 10 mcg/mL (10-20); BUN/Creatinine Ratio 12 (6-26); Blood Urea Nitrogen 9 mg/dL (6-20); Calcium 9.1 mg/dL (8.6-10.3); Carbon Dioxide 26 mEq/L (23-29); Chloride 104 mEq/L (98-107); Ethanol 208 mg/dL (Less than 10); Glucose 89 mg/dL (70-105); Osmolality,Calculated 288 (280-300); Potassium 3.8 mEq/L (3.5-5.1); Salicylate < 2.5 mg/dL (15.0-30.0); Sodium 140 mEq/L (136-145); eGFR For African Americans > 60 (> 60); eGFR For Non-African Americans > 60 (> 60)
[2019-09-10] MEDS ORDERED: Naloxone 0.4 MG/ML INJ IVP PRN (22:37)
[2019-09-10] MEDS ORDERED: *HR* LORazepam 2 MG/ML VIAL IVP PRN (22:39)
[2019-09-10] MEDS: Nicotine 21 MG PATCH.TD24 TD SCH (22:53)
[2019-09-10] MEDS: Thiamine (B-1) 100 MG, Folic Acid 1 MG, MVI, adult with vitamin K 10 ML in 0.9 % Sodi... IVPB SCH (23:22)
[2019-09-11] MEDS: *HR* LORazepam 2 MG/ML VIAL IVP PRN ×3 (02:34→21:26)
[2019-09-11] MEDS ORDERED: Ondansetron 4 MG/2 ML VIAL IVP PRN (06:07)
[2019-09-11 06:51] LABS: Hematocrit 41.5 % (35.3-44.9); Hemoglobin 13.9 g/dL (11.5-15.4); Mean Corpuscular HGB Conc 33.5 g/dL (31.6-35.5); Mean Corpuscular Hemoglobin 34.9 pg (28.0-33.3); Mean Corpuscular Volume 104.3 fL (83.0-100.0); Mean Platelet Volume 11.3 fL (9.4-12.4); Platelet Count 305 K/mcL (140-400); Red Blood Count 3.98 M/mcL (3.82-4.97); Red Cell Distribution Width 13.2 % (11.5-14.5); White Blood Count 9.5 K/mcL (4.3-11.1)
[2019-09-11 07:15] LABS: BUN/Creatinine Ratio 13 (6-26); Blood Urea Nitrogen 10 mg/dL (6-20); Calcium 8.6 mg/dL (8.6-10.3); Carbon Dioxide 27 mEq/L (23-29); Chloride 102 mEq/L (98-107); Glucose 81 mg/dL (70-105); Magnesium 1.9 mg/dL (1.6-2.6); Osmolality,Calculated 290 (280-300); Phosphorous 3.1 mg/dL (2.7-4.5); Sodium 141 mEq/L (136-145); eGFR For African Americans > 60 (> 60); eGFR For Non-African Americans > 60 (> 60)
[2019-09-11] MEDS ORDERED: 0.9 % Sodium Chloride 1,000 ML IV ONE (08:26)
[2019-09-11 09:15] LABS: Albumin 3.9 g/dL (3.5-5.7); Albumin/Globulin Ratio 1.6 (1.1-2.2); Bilirubin,Direct 0.1 mg/dL (0.0-0.2); Bilirubin,Indirect 0.6 mg/dL (0.0-1.0); Bilirubin,Total 0.7 mg/dL (0.3-1.0); Globulin 2.5 g/dL (2.4-3.5); Total Protein 6.4 g/dL (6.4-8.9)
[2019-09-11] MEDS: Nicotine 21 MG PATCH.TD24 TD SCH (09:34)
[2019-09-11] MEDS: Gabapentin 300 MG CAPSULE PO SCH ×2 (14:06→20:03)
[2019-09-11] MEDS: clonazePAM 1 MG TABLET PO SCH ×2 (14:06→20:02)
[2019-09-11] MEDS ORDERED: Ibuprofen 600 MG TABLET PO PRN (14:26)
[2019-09-11] MEDS: Thiamine (B-1) 100 MG, Folic Acid 1 MG, MVI, adult with vitamin K 10 ML in 0.9 % Sodi... IVPB SCH (16:03)
[2019-09-11 19:34] VITALS: BP 112/76
[2019-09-11] MEDS ORDERED: Cyanocobalamin (B-12) 1,000 MCG/ML VIAL SQ ONE (20:00)
[2019-09-11] MEDS: tiZANidine 4 MG TABLET PO PRN (21:51)
[2019-09-12 05:42] LABS: Basophils # 0.1 K/mcL (0.0-0.2); Basophils % 0.8 %; Eosinophils # 0.2 K/mcL (0.0-0.6); Eosinophils % 2.6 %; Hematocrit 40.7 % (35.3-44.9); Hemoglobin 13.3 g/dL (11.5-15.4); Immature Granulocytes % 0.3 % (0-4); Lymphocytes # 3.9 K/mcL (0.6-4.6); Lymphocytes % 42.5 %; Mean Corpuscular HGB Conc 32.7 g/dL (31.6-35.5); Mean Corpuscular Volume 107.1 fL (83.0-100.0); Mean Platelet Volume 11.3 fL (9.4-12.4); Monocytes # 0.7 K/mcL (0.0-1.3); Neutrophils # 4.2 K/mcL (1.6-8.9); Platelet Count 281 K/mcL (140-400); Segmented Neutrophils % 45.8 %; White Blood Count 9.2 K/mcL (4.3-11.1)
[2019-09-12] MEDS ORDERED: *HR* Enoxaparin 40 MG/0.4 ML SYRINGE SQ SCH (06:00)
[2019-09-12 06:08] LABS: BUN/Creatinine Ratio 9 (6-26); Blood Urea Nitrogen 11 mg/dL (6-20); Calcium 9.1 mg/dL (8.6-10.3); Carbon Dioxide 27 mEq/L (23-29); Chloride 106 mEq/L (98-107); Glucose 102 mg/dL (70-105); Osmolality,Calculated 296 (280-300); Potassium 4.2 mEq/L (3.5-5.1); Sodium 143 mEq/L (136-145); eGFR For African Americans > 60 (> 60); eGFR For Non-African Americans 51 (> 60)
[2019-09-12] MEDS: Nicotine 21 MG PATCH.TD24 TD SCH (08:51)
[2019-09-12] MEDS: Gabapentin 300 MG CAPSULE PO SCH ×2 (08:51→15:39)
[2019-09-12] MEDS: clonazePAM 1 MG TABLET PO SCH ×2 (08:51→15:39)
[2019-09-12] MEDS: *HR* LORazepam 2 MG/ML VIAL IVP PRN (10:16)
[2019-09-12] MEDS: tiZANidine 4 MG TABLET PO PRN (15:39)
[2019-09-13] MEDS ORDERED: Thiamine (B-1) 100 MG TABLET PO SCH (09:00)
[2019-09-13] MEDS ORDERED: Vitamin B Complex/Vit C/Vit E 1 EACH TABLET PO SCH (09:00)
[2019-09-13] MEDS ORDERED: Folic Acid 1 MG TABLET PO SCH (09:00)
[2019-09-14 07:58] LABS: Thyroglobulin Antibody <0.9 IU/mL (0.0-4.0)
== END 2019-09-12 17:46 | disposition home or self-care (01) | DRG 918 ==
LOC: 3BNU 13:11 → EMEROOARM 13:11 → SUATTDRO 20:33 → 3BNU 21:43
PROVIDERS: ADMIT Family Medicine; ATTEND Pharmacist

== ENCOUNTER 2019-10-05 20:30 | Inpatient (IN) ==
[~2019-10-05 20:30] MED LIST: *HR* Etomidate 20 MG/10 ML AMPUL IVP ONE; *HR* Rocuronium Bromide 100 MG/10 ML VIAL IVC ONE
[2019-10-05] MEDS ORDERED: 0.9 % Sodium Chloride 1,000 ML ONE (20:45)
[2019-10-05] MEDS ORDERED: 0.9 % Sodium Chloride 2,000 ML ONE (20:48)
[2019-10-05 21:20] LABS: Basophils # 0.1 K/mcL (0.0-0.2); Basophils % 0.6 %; Eosinophils # 0.1 K/mcL (0.0-0.6); Eosinophils % 0.6 %; Immature Granulocytes % 0.5 % (0-4); Lymphocytes # 6.3 K/mcL (0.6-4.6); Mean Corpuscular HGB Conc 32.5 g/dL (31.6-35.5); Mean Corpuscular Hemoglobin 34.4 pg (28.0-33.3); Mean Corpuscular Volume 105.8 fL (83.0-100.0); Mean Platelet Volume 10.2 fL (9.4-12.4); Monocytes # 0.7 K/mcL (0.0-1.3); Monocytes % 4.9 %; Neutrophils # 7.4 K/mcL (1.6-8.9); Platelet Count 353 K/mcL (140-400); Red Blood Count 3.78 M/mcL (3.82-4.97); Red Cell Distribution Width 13.6 % (11.5-14.5); Segmented Neutrophils % 50.4 %; White Blood Count 14.6 K/mcL (4.3-11.1)
[2019-10-05 21:22] LABS: INR 0.9; Prothrombin Time 10.4 Seconds (9.4-12.1)
[2019-10-05 21:25] LABS: Activated Partial Thrombo Time 31.9 Seconds (26.0-36.0)
[2019-10-05] MEDS ORDERED: 0.9 % Sodium Chloride 1,000 ML IVC ONE ×2 (21:38)
[2019-10-05 21:41] LABS: Bilirubin,Urine Negative (Negative); Blood,Urine Trace (Negative); Clarity,Urine Clear (Clear); Color,Urine Yellow (Yellow); Glucose,Urine (UA) Normal (Normal); Ketones,Urine Negative (Negative); Leukocyte Esterase,Urine Negative (Negative); Nitrite,Urine Negative (Negative); PH,Urine 6.5 pH Units (5.0-8.0); Protein,Urine Negative (Neg-Trace); Specific Gravity,Urine 1.008 (1.010-1.025); Urobilinogen,Urine Normal (Normal)
[2019-10-05 21:44] LABS: Bacteria,Urine None Seen per hpf (None-Few); Hyaline Casts,Urine None Seen per lpf (None-Few); RBC,Urine 0-3 per hpf (0-3); Squamous Epithelial Cell,Urine Few per lpf (None-Few); WBC,Urine 0-3 per hpf (0-3)
[2019-10-05 21:51] LABS: Amphetamine Screen,Urine Negative ng/mL (Cutoff=1000); Barbiturate Screen,Urine Negative ng/mL (Cutoff=200); Benzodiazepines Screen,Urine Negative ng/mL (Cutoff=200); Cannabinoid Screen,Urine Negative ng/mL (Cutoff = 50); Cocaine Screen,Urine Negative ng/mL (Cutoff= 300); Opiate Screen,Urine Negative ng/mL (Cutoff=300); Phencyclidine Screen,Urine Negative ng/mL (Cutoff=25)
[2019-10-05 22:21] LABS: Alanine Aminotransferase 15 Units/L (7-52); Albumin 4.2 g/dL (3.5-5.7); Albumin/Globulin Ratio 1.6 (1.1-2.2); Alkaline Phosphatase 59 Units/L (34-104); Aspartate Amino Transferase 17 Units/L (13-39); BUN/Creatinine Ratio 8 (6-26); Bilirubin,Direct 0.1 mg/dL (0.0-0.2); Bilirubin,Indirect 0.1 mg/dL (0.0-1.0); Bilirubin,Total 0.2 mg/dL (0.3-1.0); Blood Urea Nitrogen 5 mg/dL (6-20); Carbon Dioxide 21 mEq/L (23-29); Chloride 109 mEq/L (98-107); Creatine Kinase 49 Units/L (30-223); Ethanol > 600 mg/dL (Less than 10); Globulin 2.7 g/dL (2.4-3.5); Glucose 197 mg/dL (70-105); Osmolality,Calculated 301 (280-300); Potassium 2.6 mEq/L (3.5-5.1); Sodium 144 mEq/L (136-145); Thyroid Stimulating Hormone 1.134 mcIU/mL (0.340-5.600); Total Protein 6.9 g/dL (6.4-8.9); Troponin I < 0.03 ng/mL (< 0.04); eGFR For African Americans > 60 (> 60); eGFR For Non-African Americans > 60 (> 60)
[2019-10-05] MEDS ORDERED: Thiamine (B-1) 200 MG, Folic Acid 1 MG, MVI, adult with vitamin K 10 ML in 0.9 % Sodi... IVPB ONE (23:00)
[2019-10-05 23:15] LABS: Acetaminophen < 10 mcg/mL (10-20); Salicylate < 2.5 mg/dL (15.0-30.0)
[2019-10-05] MEDS ORDERED: Naloxone 0.4 MG/ML INJ IVP PRN (23:43)
[2019-10-05] MEDS ORDERED: Ringers Solution, Lactated 1,000 ML IVC SCH (23:45)
[2019-10-06] MEDS: FentaNYL (PF) 1,000 MCG in 0.9 % Sodium Chloride 80 ML IVC SCH ×2 (00:12→07:59)
[2019-10-06 00:49] LABS: ABG Base Excess -3 mEq/L (-2 to 3); ABG HCO3 22 mEq/L (21-27); ABG Oxygen Saturation 100 % (95-98); ABG PCO2 37 mmHg (35-45); ABG PH 7.38 pH Units (7.32-7.45); ABG PO2 272 mmHg (85-104); ABG TCO2 23 mEq/L (20-26); Blood Gas Modality AF; Blood Gas VT 400 cc
[2019-10-06 05:01] LABS: ABG Base Excess -4 mEq/L (-2 to 3); ABG HCO3 23 mEq/L (21-27); ABG Oxygen Saturation 100 % (95-98); ABG PCO2 46 mmHg (35-45); ABG PO2 244 mmHg (85-104); ABG TCO2 24 mEq/L (20-26); Blood Gas Modality ASSIST CONTROL; Blood Gas VT 400 cc
[2019-10-06 05:19] LABS: Basophils # 0.1 K/mcL (0.0-0.2); Basophils % 0.9 %; Eosinophils # 0.1 K/mcL (0.0-0.6); Hematocrit 42.8 % (35.3-44.9); Hemoglobin 13.9 g/dL (11.5-15.4); Lymphocytes # 6.1 K/mcL (0.6-4.6); Lymphocytes % 45.8 %; Mean Corpuscular HGB Conc 32.5 g/dL (31.6-35.5); Mean Corpuscular Hemoglobin 34.5 pg (28.0-33.3); Mean Corpuscular Volume 106.2 fL (83.0-100.0); Monocytes # 0.9 K/mcL (0.0-1.3); Monocytes % 6.3 %; Neutrophils # 6.1 K/mcL (1.6-8.9); Platelet Count 371 K/mcL (140-400); Red Blood Count 4.03 M/mcL (3.82-4.97); White Blood Count 13.4 K/mcL (4.3-11.1)
[2019-10-06 05:43] LABS: Alanine Aminotransferase 54 Units/L (7-52); Albumin 3.9 g/dL (3.5-5.7); Albumin/Globulin Ratio 1.6 (1.1-2.2); Alkaline Phosphatase 82 Units/L (34-104); Aspartate Amino Transferase 153 Units/L (13-39); BUN/Creatinine Ratio 7 (6-26); Bilirubin,Total 0.2 mg/dL (0.3-1.0); Blood Urea Nitrogen 5 mg/dL (6-20); Calcium 7.6 mg/dL (8.6-10.3); Carbon Dioxide 24 mEq/L (23-29); Chloride 115 mEq/L (98-107); Globulin 2.5 g/dL (2.4-3.5); Glucose 89 mg/dL (70-105); Osmolality,Calculated 307 (280-300); Potassium 4.1 mEq/L (3.5-5.1); Sodium 150 mEq/L (136-145); Total Protein 6.4 g/dL (6.4-8.9); eGFR For African Americans > 60 (> 60); eGFR For Non-African Americans > 60 (> 60)
[2019-10-06] MEDS: *HR* Heparin 5,000 UNIT/ML VIAL SQ SCH ×3 (06:15→21:22)
[2019-10-06] MEDS ORDERED: Artificial Tears SOLN 15 ML BOTTLE BOTH EYES PRN (07:13)
[2019-10-06] MEDS: Pantoprazole 40 MG VIAL IVP SCH (08:24)
[2019-10-06] MEDS: Artificial Tears SOLN 15 ML BOTTLE BOTH EYES SCH ×2 (08:24→09:53)
[2019-10-06] MEDS ORDERED: Dexmedetomidine HCl 400 MCG/100 ML MLS IVC ONE (08:55)
[2019-10-06] MEDS ORDERED: Chlorhexidine Rinse 15 ML MOUTHWASH MM SCH (09:00)
[2019-10-06] MEDS ORDERED: *HR* LORazepam 2 MG/ML VIAL IVP PRN ×2 (09:07)
[2019-10-06] MEDS: Dexmedetomidine HCl 400 MCG/100 ML MLS IVC SCH ×2 (09:17→19:54)
[2019-10-06] MEDS: D5% in 0.45% NACL 1,000 ML IVC SCH ×2 (09:59→15:14)
[2019-10-06] MEDS: Nicotine 21 MG PATCH.TD24 TD SCH (09:59)
[2019-10-06] MEDS: Acetaminophen 325 MG TABLET PO PRN (13:44)
[2019-10-06] MEDS: *HR* Promethazine 25 MG/ML VIAL IVP PRN ×2 (13:57→20:14)
[2019-10-06 14:21] LABS: BUN/Creatinine Ratio 9 (6-26); Blood Urea Nitrogen 5 mg/dL (6-20); Calcium 7.2 mg/dL (8.6-10.3); Carbon Dioxide 20 mEq/L (23-29); Chloride 115 mEq/L (98-107); Ethanol 88 mg/dL (Less than 10); Glucose 138 mg/dL (70-105); Osmolality,Calculated 295 (280-300); Potassium 3.3 mEq/L (3.5-5.1); Sodium 143 mEq/L (136-145); eGFR For African Americans > 60 (> 60); eGFR For Non-African Americans > 60 (> 60)
[2019-10-06] MEDS ORDERED: Ringers Solution, Lactated 500 ML IVC ONE ×2 (15:29→16:57)
[2019-10-06] MEDS: Ringers Solution, Lactated 1,000 ML IVC SCH ×2 (17:06→19:54)
[2019-10-06 17:33] LABS: Basophils # 0.1 K/mcL (0.0-0.2); Basophils % 0.6 %; Eosinophils # 0.1 K/mcL (0.0-0.6); Eosinophils % 0.6 %; Hematocrit 33.7 % (35.3-44.9); Immature Granulocytes % 0.5 % (0-4); Lymphocytes # 3.2 K/mcL (0.6-4.6); Mean Corpuscular HGB Conc 33.8 g/dL (31.6-35.5); Mean Corpuscular Hemoglobin 34.4 pg (28.0-33.3); Mean Corpuscular Volume 101.8 fL (83.0-100.0); Mean Platelet Volume 10.3 fL (9.4-12.4); Monocytes # 0.7 K/mcL (0.0-1.3); Neutrophils # 10.3 K/mcL (1.6-8.9); Platelet Count 292 K/mcL (140-400); Red Blood Count 3.31 M/mcL (3.82-4.97); Red Cell Distribution Width 13.9 % (11.5-14.5); Segmented Neutrophils % 71.3 %; White Blood Count 14.4 K/mcL (4.3-11.1)
[2019-10-06 17:35] LABS: Hemoglobin 11.4 g/dL (11.5-15.4)
[2019-10-06 17:54] LABS: Albumin 3.4 g/dL (3.5-5.7); Albumin/Globulin Ratio 1.7 (1.1-2.2); Bilirubin,Direct 0.1 mg/dL (0.0-0.2); Bilirubin,Indirect 0.3 mg/dL (0.0-1.0); Bilirubin,Total 0.4 mg/dL (0.3-1.0); Total Protein 5.4 g/dL (6.4-8.9)
[2019-10-07] MEDS: Ringers Solution, Lactated 1,000 ML IVC SCH ×2 (02:19→11:52)
[2019-10-07] MEDS: *HR* LORazepam 2 MG/ML VIAL IVP PRN ×3 (03:35→17:38)
[2019-10-07 05:55] LABS: Prothrombin Time 11.2 Seconds (9.4-12.1)
[2019-10-07 05:56] LABS: Basophils # 0.1 K/mcL (0.0-0.2); Basophils % 0.6 %; Eosinophils # 0.1 K/mcL (0.0-0.6); Eosinophils % 0.9 %; Hematocrit 35.9 % (35.3-44.9); Hemoglobin 12.2 g/dL (11.5-15.4); Immature Granulocytes % 0.3 % (0-4); Lymphocytes # 2.8 K/mcL (0.6-4.6); Lymphocytes % 19.7 %; Mean Corpuscular Hemoglobin 34.4 pg (28.0-33.3); Mean Corpuscular Volume 101.1 fL (83.0-100.0); Mean Platelet Volume 10.8 fL (9.4-12.4); Monocytes # 0.4 K/mcL (0.0-1.3); Monocytes % 2.8 %; Neutrophils # 10.9 K/mcL (1.6-8.9); Platelet Count 313 K/mcL (140-400); Red Blood Count 3.55 M/mcL (3.82-4.97); Red Cell Distribution Width 13.7 % (11.5-14.5); Segmented Neutrophils % 75.7 %; White Blood Count 14.4 K/mcL (4.3-11.1)
[2019-10-07] MEDS: *HR* Heparin 5,000 UNIT/ML VIAL SQ SCH ×3 (05:59→21:46)
[2019-10-07 06:01] LABS: Alanine Aminotransferase 29 Units/L (7-52); Albumin 3.2 g/dL (3.5-5.7); Albumin/Globulin Ratio 1.4 (1.1-2.2); Alkaline Phosphatase 72 Units/L (34-104); Aspartate Amino Transferase 26 Units/L (13-39); BUN/Creatinine Ratio 11 (6-26); Bilirubin,Total 0.6 mg/dL (0.3-1.0); Blood Urea Nitrogen 6 mg/dL (6-20); Calcium 8.4 mg/dL (8.6-10.3); Carbon Dioxide 25 mEq/L (23-29); Chloride 108 mEq/L (98-107); Ethanol < 10 mg/dL (Less than 10); Globulin 2.3 g/dL (2.4-3.5); Glucose 108 mg/dL (70-105); Magnesium 1.2 mg/dL (1.6-2.6); Osmolality,Calculated 288 (280-300); Phosphorous 2.1 mg/dL (2.7-4.5); Potassium 3.8 mEq/L (3.5-5.1); Sodium 140 mEq/L (136-145); Total Protein 5.5 g/dL (6.4-8.9); eGFR For African Americans > 60 (> 60); eGFR For Non-African Americans > 60 (> 60)
[2019-10-07] MEDS: Acetaminophen 325 MG TABLET PO PRN (08:35)
[2019-10-07] MEDS: Pantoprazole 40 MG VIAL IVP SCH (08:37)
[2019-10-07] MEDS: Nicotine 21 MG PATCH.TD24 TD SCH (08:37)
[2019-10-07] MEDS ORDERED: Folic Acid 1 MG TABLET PO SCH (09:00)
[2019-10-07] MEDS ORDERED: Thiamine (B-1) 100 MG TABLET PO SCH (09:00)
[2019-10-07] MEDS ORDERED: Vitamin B Complex/Vit C/Vit E 1 EACH TABLET PO SCH (09:00)
[2019-10-07] MEDS ORDERED: Acetaminophen 325 MG TABLET PO PRN (18:16)
[2019-10-07] MEDS ORDERED: *HR* LORazepam 2 MG/ML VIAL IVP PRN ×3 (18:16)
[2019-10-07] MEDS: Gabapentin 300 MG CAPSULE PO SCH (21:37)
[2019-10-08] MEDS: *HR* Heparin 5,000 UNIT/ML VIAL SQ SCH ×2 (04:56→11:39)
[2019-10-08 07:21] VITALS: BP 104/72
[2019-10-08] MEDS: Gabapentin 300 MG CAPSULE PO SCH (08:42)
[2019-10-08] MEDS ORDERED: Cyanocobalamin (B-12) 1,000 MCG TABLET PO SCH (09:00)
[2019-10-08] MEDS ORDERED: Folic Acid 1 MG TABLET PO SCH (09:00)
[2019-10-08] MEDS ORDERED: Vitamin B Complex/Vit C/Vit E 1 EACH TABLET PO SCH (09:00)
[2019-10-08] MEDS ORDERED: Nicotine 21 MG PATCH.TD24 TD SCH (09:00)
== END 2019-10-08 13:10 | disposition left against medical advice (07) | DRG 770 ==
LOC: EMEROOARM 20:30 → ICNU 23:10 → SUATTDRO 23:10 → ICNU 23:31 → 3ANU 10-07 11:18
PROVIDERS: ADMIT Student in an Organized Health Care Education/Training Program; ATTEND Internal Medicine